=== PATIENT | male | born 1950 | race Caucasian/White ===

== ENCOUNTER 2018-05-27 18:45 | Emergency (ER) | payer MEDICARE ==
[2018-05-27] MEDS ORDERED: NS 0.9% 1000 ML* 1,000 ML IV ONE (19:20)
[2018-05-27] MEDS ORDERED: Ondansetron INJ* 2 MG/ML VIAL IV ONE (19:20)
[2018-05-27] MEDS ORDERED: Pantoprazole IV* 40 MG IV ONE (19:20)
--- NOTE | 2018-05-27 19:37 | ED ---
Complex/Multi-Sys Presentation - HPI Summary HPI Summary: This is Larry Elaine documenting for attending Jimy Harrington MD. Pt is a 68 y/o M c/o weakness onset ~ 4 days ago. Assoc Sx: No appetite, vomiting, hematuria. Denies: melena, night sweats, feeling sad. He fell last evening due to weakness likely related to dehydration/malnutrition. Pt reports he was taking Tylenol PM which alleviated Sx. SHx: None. PMHx: no liver disease , DM, HTN. Allergies: penicillin, tomatoes. He states my time is up and he is tired of people helping him and asking questions. - History Of Current Complaint Chief Complaint: EDWeakness Time Seen by Provider: 05/27/18 19:15 Hx Obtained From: Patient Onset/Duration: Gradual Onset, Lasting Days - 4 days, Still Present Timing: Constant Associated Signs And Symptoms: Positive: Vomiting, Hematemesis, Decreased Oral Intake - decreased appetite, Other - NEG: night sweats, feeling sad. Negative: Melena - Allergies/Home Medications Allergies/Adverse Reactions: Allergies Allergy/AdvReac Type Severity Reaction Status Date / Time Penicillins Allergy Unknown Verified 05/27/18 18:51 Reaction Details tomato Allergy Rash Verified 05/27/18 18:51 Home Medications: Home Medications Tylenol Pm Ex-Strength Caplet 1 tab PO BEDTIME 05/27/18 [History Confirmed 05/27] PMH/Surg Hx/FS Hx/Imm Hx Endocrine/Hematology History: Denies: Hx Diabetes Cardiovascular History: Denies: Hx Hypertension Infectious Disease History: No Infectious Disease History: Denies: Traveled Outside the [place] in Last 30 Days - Family History Known Family History: Positive: Unknown - HTN, CAD, Diabetes - Social History Occupation: Retired Lives: Alone Alcohol Use: Rare Substance Use Type: Reports: None Smoking Status (MU): Former Smoker Review of Systems Positive: Other - POS: decreased appetite/oral intake. NEG: night sweats Positive: Vomiting, Other - POS: hematuria, melena. Positive: Other - NEG: feeling sad. All Other Systems Reviewed And Are Negative: Yes Physical Exam - Summary Physical Exam Summary: GENERAL: Patient is a chachectic M who is lying comfortable in the stretcher. Patient is not in any acute respiratory distress. HEAD AND FACE: Normocephalic EYES: PERRLA, EOMI x 2. EARS: Hearing grossly intact. MOUTH: Oropharynx within normal limits. NECK: Supple, trachea is midline, no adenopathy, no JVD, no carotid bruit. CHEST: Symmetric, no tenderness at palpation LUNGS: Clear to auscultation bilaterally. No wheezing or crackles. CVS: Regular rate and rhythm, S1 and S2 present, no murmurs or gallops appreciated. ABDOMEN: Soft, non-tender. Bowel sounds are normal. No abdominal abnormal pulsations. EXTREMITIES: Full ROM in all major joints, no edema, no cyanosis or clubbing. NEURO: Alert and oriented x 3. No acute neurological deficits. Speech is normal and follows commands. (+) Tremors. SKIN: Dry and warm Triage Information Reviewed: Yes Vital Signs On Initial Exam: Initial Vitals Temp Pulse Resp BP Pulse Ox 99.1 F 100 19 176/99 99 05/27/18 18:49 05/27/18 18:49 05/27/18 18:49 05/27/18 18:49 05/27/18 18:49 Vital Signs Reviewed: Yes Diagnostics - Vital Signs Vital Signs Temp Pulse Resp BP Pulse Ox 05/27/18 19:00 100 19 100 05/27/18 18:49 99.1 F 100 12 176/99 100 - Laboratory Result Diagrams: 05/27/18 19:52 05/27/18 19:52 Lab Statement: Any lab studies that have been ordered have been reviewed, and results considered in the medical decision making process. - Radiology CXR Xray Interpretation: No Acute Changes - IMPRESSION: No radiographic evidence for acute cardiopulmonary abnormality on this portable chest x-ray. Radiology Interpretation Completed By: Radiologist - Report reviewed by provider - EKG 2017 Cardiac Rate: NL - [address] Segment: Normal EKG Interpretation: LVH Complex Multi-Symp Course/Dx Course Of Treatment: 68-year-old male who presents to the emergency room with a few week history of anorexia, generalized malaise and coffee-ground emesis. Patient was started on a PPI drip. Workup is remarkable for a hemoglobin of 8.7 and a hematocrit of 25, BUN of 339, creatinine of 23, bicarbonate of 12, an anion gap of 29, a troponin of 0.09. Patient given 2 L of IV fluid. I consulted nephrology and spoke with Dr. Beach who recommended placing a parrish. Parrish was then placed by nurse with subsequent output of over 1600cc output. Patient's ROSALINO most Likely secondary to urinary retention. Patient was subsequently admitted to the hospitalist in stable condition. All results and plan of care discussed with patient in great details. - Diagnoses Provider Diagnoses: Acute renal failure - Critical Care Time Critical Care Time: 30-74 min Discharge - Sign-Out/Discharge Documenting (check all that apply): Patient Departure - Discharge Plan Condition: Stable Disposition: ADMITTED TO [facility] - Billing Disposition and Condition Condition: STABLE Disposition: Admitted to [facility]
--- NOTE | 2018-05-27 19:59 | RAD ---
INDICATION: Weakness COMPARISON: None. TECHNIQUE: Single AP portable view of the chest was obtained. FINDINGS: Image quality is compromised due to the relative inferiority of a portable chest x-ray. The heart and mediastinum exhibit normal size and contour. The lungs are grossly clear. There is no evidence of a large pleural effusion. Visualized bones are normal for the patient's age. IMPRESSION: No radiographic evidence for acute cardiopulmonary abnormality on this portable chest x-ray.
[2018-05-27] MEDS ORDERED: Pantoprazole IV* 80 MG in NS 0.9% 250 ML* 250 ML IVPB SCH (20:00)
[2018-05-27 20:04] LABS: ABS Basophils 0 10^3/ul (0-0.2); ABS Eosinophils 0 10^3/ul (0-0.6); ABS Lymphocytes 0.5 10^3/ul (1.0-4.8); ABS Monocytes 0.8 10^3/ul (0-0.8); ABS Neutrophils 8.8 10^3/ul (1.5-7.7); ABS Nucleated RBC 0 10^3/ul; Eosinophil % 0.1 % (0-6); Hematocrit 25 % (42-52); Hemoglobin 8.7 g/dl (14.0-18.0); Lymphocyte % 4.8 % (25-47); Mean Corpuscular HGB Conc 35 g/dl (31-36); Mean Corpuscular Hemoglobin 28 pg (27-31); Mean Corpuscular Volume 81 fL (80-94); Mean Platelet Volume 9.1 um3 (7.4-10.4); Nucleated Red Blood Cells % 0; Platelet Count 125 10^3/ul (150-450); Red Blood Count 3.04 10^6/ul (4.00-5.40); Red Cell Distribution Width 13 % (10.5-15); White Blood Count 10.1 10^3/ul (3.5-10.8)
[2018-05-27 20:12] LABS: INR 0.98 (0.77-1.02)
[2018-05-27] MEDS ORDERED: Lidocaine 2% JELLY* 6 ML JELLY TOPICAL ONE (20:46)
[2018-05-27 21:27] LABS: Urine Appearance Clear; Urine Blood 3+ (Negative); Urine Color Yellow; Urine Ketones Negative (Negative); Urine Protein Negative (Negative); Urine Red Blood Cell Trace(0-2/hpf) (Absent); Urine Specific Gravity 1.011 (1.010-1.030); Urine Urobilinogen Negative (Negative); Urine White Blood Cell 1+(6-10/hpf) (Absent)
[2018-05-27] MEDS ORDERED: Labetalol IV* 5 MG/ML 20 ML VIAL IV PUSH ONE (22:37)
[2018-05-28] MEDS: NS 0.9% 1000 ML* 1,000 ML IV ONE ×2 (00:05→00:43)
--- NOTE | 2018-05-28 00:57 | CONS ---
CONSULTATION REPORT: DATE OF CONSULT: 05/27/18 - EMERGENCY DEPT TIME OF EVALUATION: 2100. PRIMARY CARE PHYSICIAN: The patient does not have a primary care physician. CHIEF COMPLAINT: Weakness, unable to urinate or tolerate any p.o. HISTORY OF PRESENT ILLNESS: This is a 68-year-old male who has not seen a primary care physician in 30 years. He is a disabled who presented to the emergency room after having 2 to 3 days of difficulty urinating and unable to eat. He also states for the past 2 to 3 days, he has had coffee ground emesis and when he did have a bowel movement about 3 to 4 days ago, it was black stool. The patient states he had so much significant indigestion. He tried aspirin. He tried indigestion medications, but nothing improved his discomfort. The patient was so weak this evening, he was able to crawl to a floor and call EMS for further evaluation. The patient denies any chest pain, no shortness of breath. He does admits to being confused. As mentioned, he feels he has indigestion and bloating. He states he has lost about 30 to 40 pounds over the past 6 months. He states prior to this, he has had no issues with urinating. He does state he does have prostate issues, but prior to 2 to 3 days, he was urinating without any issues. In the emergency room, the patient had labs and imaging and was referred to the hospitalist service for further evaluation. He was given Zofran 4 mg, Protonix 80 mg and a L of normal saline. PAST MEDICAL HISTORY: Per patient history of prostate issues. MEDICATIONS: None. ALLERGIES: PENICILLIN, TOMATOES. SOCIAL HISTORY: The patient lives alone. He states he is independent with ADLs. He is a disabled . He quit smoking a pipe 1 to 2 years ago. No alcohol or illicit drug use. He states he does not have a healthcare proxy. He has no family or friends around. He did say he would like to be a DNR/DNI. FAMILY HISTORY: Mother from diabetes. Father from lung cancer. REVIEW OF SYSTEMS: A 14-point review of systems as mentioned in the HPI, otherwise negative. PHYSICAL EXAM: Vitals: Temp 99, pulse rate of 100, respiratory rate 19, oxygen saturation 100% on room air, blood pressure 126/99. General: The patient with visible asterixis. 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 HEENT: Head is normocephalic. Pupils are equal and reactive. Oropharynx: Mucous membranes are dry. Neck: Supple. No lymphadenopathy. Cardiac: Regular rate and rhythm. Soft systolic murmur heard throughout. Respiratory: Diminished breath sounds. No wheezes, rhonchi or rales. Abdomen : Positive bowel sounds. Soft with mild distention. No tenderness. Extremities: No clubbing, cyanosis or edema. +1 DPs. Neurologic: Alert and oriented x3. No gross focal neurologic deficits other than the diffuse asterixis. DIAGNOSTIC STUDIES/LAB DATA: White count 10, hemoglobin 8.7, hematocrit 25, platelets 125,000. INR 0.98. Sodium 142, potassium 4.7, chloride 101, bicarb 12, BUN 339, creatinine 23, glucose 146, calcium 10.6, phosphorus 14.8, magnesium 4.2, troponin 0.09, CRP is 9. Urinalysis shows +3 blood. Radiographic data: Chest x-ray no radiographic evidence for acute cardiopulmonary abnormality on this portable chest x-ray. EKG shows normal sinus rhythm with nonspecific ST changes. ASSESSMENT: This is a 68-year-old male with a past medical history of prostate issues, who has not seen a PCP in 30 years, presents to the emergency room with unable to urinate, decreased p.o. and weakness, found to have renal failure. 1. Weakness and inability to urinate. Assessment, the patient had a Peña catheter placed with 1800 output. This is consistent with postobstructive renal failure likely related to his prostate issues, but other possibilities including a malignancy causing obstruction cannot be ruled out without further imaging. I did speak with Dr. Beach regarding management of his care, unfortunately we do not have dialysis available until 05/29/18 and the option was to monitor him closely with fluids for a few hours to see if numbers improved, however, this is not able to done in the emergency room with the volume and acuity of this patient's illness and the need for possible urgent dialysis prior to 05/29/18. So, recommendation per Dr. Beach and myself is to transfer him to a center where they have dialysis available. 2. GI bleed. Assessment. The patient did receive Protonix. I recommend further workup for his GI bleed. 3. Social situation. Recommend social work to help with healthcare proxy and resources for this patient who does not seem to have much. My recommendations were given to Dr. Harrington who is agreeable to transferring this patient. TIME SPENT: Greater than 50 minutes were spent doing the consultation, more than half the time spent in direct patient contact. [id number]/CPS #: [id number] MTDD
[2018-05-28 01:45] VITALS: BP 111/66
== END 2018-05-28 01:45 | disposition short-term general hospital (02) ==
LOC: ED 18:45
DX: N17.9 Acute kidney failure, unspecified (principal); N42.9 Disorder of prostate, unspecified; I51.7 Cardiomegaly; Z87.891 Personal history of nicotine dependence; Z88.0 Allergy status to penicillin
CPT/HCPCS: 36415; 71045; 80053; 81003; 81015; 82550; 83605; 83735; 83880; 84100; 84134; 84153; 84443; 84484; 85025; 85610; 85730; 86140; 86850; 86900; 86901; 87040; 87086; 93005; 96361; 96374; 96375; 99285; G0103; J2405